=== PATIENT | male | born 1995 | race Hispanic/Latino ===

== ENCOUNTER 2018-07-03 22:21 | Emergency (ER) | payer OTHER ==
[~2018-07-03] VITALS: Ht 172.7 cm; Wt 65.9 kg
[2018-07-03 22:21] VITALS: BP 120/64
[2018-07-03] MEDS ORDERED: ACETAMINOPHEN TAB 650MG DOSE (2X325MG) PO ONE (22:30)
[2018-07-03 23:39] LABS: INFLUENZA A AMPLIFICATION NEGATIVE (NEGATIVE); INFLUENZA B AMPLIFICATION NEGATIVE (NEGATIVE)
[2018-07-04] MEDS ORDERED: NAPROXEN 250 MG TAB PO ONE
== END 2018-07-04 00:08 | disposition home or self-care (01) ==
LOC: M ED 22:21
DX: R50.9 Fever, unspecified (principal); Z88.0 Allergy status to penicillin

== ENCOUNTER 2018-07-08 09:56 | Emergency (ER) | payer OTHER ==
[~2018-07-08] VITALS: Ht 172.7 cm; Wt 68.1 kg
[2018-07-08] MEDS ORDERED: ACET160S3 PO (10:03)
[2018-07-08] MEDS ORDERED: [UNRECOGNIZED DRUG - OTHER] (10:03)
[2018-07-08] MEDS ORDERED: ONDANSETRON 4MG/2ML VIAL (J2405) IV ONE (10:15)
[2018-07-08] MEDS ORDERED: NS 1,000 ML IV ONE (10:15)
[2018-07-08 10:39] LABS: BASO # 0.1 10^3/uL (0.0-0.2); BASO % 0.8 % (0.0-1.0); EOS # 0.1 10^3/uL (0.0-0.50); EOS % 1.6 % (0.0-3.0); HEMATOCRIT 42.5 % (42.0-52.0); HEMOGLOBIN 14.9 g/dl (13.5-17.5); LYMPH # 1.9 10^3/uL (1.5-6.5); LYMPH % 29.2 % (24.0-44.0); MEAN CORPUSCULAR HEMOGLOBIN 30.3 pg (27.0-33.0); MEAN CORPUSCULAR HGB CONC 35.1 g/dl (32.0-36.5); MEAN CORPUSCULAR VOLUME 86.4 fl (80.0-96.0); MONO # 0.9 10^3/uL (0.0-0.8); MONO % 14.7 % (0.0-5.0); NEUTROPHILS # 3.4 10^3/uL (1.8-7.7); NEUTROPHILS % 53.4 % (36.0-66.0); PLATELET COUNT, AUTOMATED 305 10^3/uL (150-450); RED BLOOD COUNT 4.92 10^6/uL (4.30-6.10); WHITE BLOOD COUNT 6.4 10^3/uL (4.0-10.0)
[2018-07-08 11:08] LABS: ALT/SGPT 14 U/L (12-78); AMYLASE 31 U/L (25-115); BILIRUBIN,DIRECT < 0.1 MG/DL (0.0-0.2); BILIRUBIN,TOTAL 0.4 MG/DL (0.2-1.0); BLOOD UREA NITROGEN 12 MG/DL (7-18); CALCIUM LEVEL 9.3 MG/DL (8.5-10.1); CARBON DIOXIDE LEVEL 27 MEQ/L (21-32); CHLORIDE LEVEL 107 MEQ/L (98-107); CREATININE FOR GFR 0.95 MG/DL (0.70-1.30); GLOMERULAR FILTRATION RATE > 60.0 (>60); GLUCOSE, FASTING 71 MG/DL (70-100); LIPASE 113 U/L (73-393); POTASSIUM SERUM 4.2 MEQ/L (3.5-5.1); SODIUM LEVEL 139 MEQ/L (136-145); TOTAL PROTEIN 7.5 GM/DL (6.4-8.2)
[2018-07-08] MEDS ORDERED: ONDA4TAB6 PO (12:04)
[2018-07-08 12:12] VITALS: BP 101/63
== END 2018-07-08 12:13 | disposition home or self-care (01) ==
LOC: M ED 09:56
DX: K52.9 Noninfective gastroenteritis and colitis, unspecified (principal); Z20.89 Contact with and (suspected) exposure to other communicable diseases; Z88.0 Allergy status to penicillin

== ENCOUNTER → 2018-07-10 | Outpatient (REF) | payer OTHER ==
[~2018-07-10] MED LIST: ACET160S3 PO; ONDA4TAB6 PO; [UNRECOGNIZED DRUG - OTHER]
== END ==
LOC: M LAB REF 12:27
PROVIDERS: ATTEND Physician Assistant Medical
DX: R19.7 Diarrhea, unspecified (principal)